=== PATIENT | male | born 1955 | race Caucasian/White ===

== ENCOUNTER → 2016-10-13 | Outpatient (CLI) | payer BC ==
[2016-10-13 13:27] LABS: CHOLESTEROL/HDL RATIO 4.8; THYROID STIMULATING HORMONE 4.22 uIu/ml (0.300-4.500)
== END | disposition home or self-care (01) ==
LOC: C.LABMFLN 09:05
PROVIDERS: ATTEND Family Medicine
DX: E78.5 Hyperlipidemia, unspecified (principal); R63.5 Abnormal weight gain